=== PATIENT | female | born 2000 | race Caucasian/White ===

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

== ENCOUNTER 2022-01-19 18:22 | Emergency (ER) | payer BC ==
[~2022-01-19] VITALS: Ht 170.2 cm; Wt 116.4 kg
[2022-01-19 18:23] VITALS: BP 144/83
== END 2022-01-19 20:02 | disposition left against medical advice (07) ==
LOC: M ED 18:22
DX: Z53.21 Procedure and treatment not carried out due to patient leaving prior to being seen by health care provider (principal)

== ENCOUNTER 2022-02-11 01:47 | Emergency (ER) | payer BC, OTHER, SELFPAY ==
[~2022-02-11] VITALS: Ht 170.2 cm; Wt 119.8 kg
[2022-02-11 02:21] LABS: BASO % 0.3 % (0.0-1.0); EOS # 0.1 10^3/uL (0.0-0.5); HEMATOCRIT 36.9 % (36.0-47.0); HEMOGLOBIN 11.2 g/dl (12.0-15.5); LYMPH # 2.1 10^3/uL (1.5-5.0); LYMPH % 30.5 % (24.0-44.0); MEAN CORPUSCULAR HEMOGLOBIN 23.4 pg (27.0-33.0); MEAN CORPUSCULAR HGB CONC 30.4 g/dl (32.0-36.5); MEAN CORPUSCULAR VOLUME 77.2 fl (80.0-96.0); MONO # 0.6 10^3/uL (0.0-0.8); NEUTROPHILS # 4.1 10^3/uL (1.5-8.5); NEUTROPHILS % 58.9 % (36.0-66.0); PLATELET COUNT, AUTOMATED 268 10^3/uL (150-450); RED BLOOD COUNT 4.78 10^6/uL (4.00-5.40); WHITE BLOOD COUNT 6.9 10^3/uL (4.0-10.0)
[2022-02-11 02:56] LABS: ALBUMIN 3.4 GM/DL (3.2-5.2); ALT/SGPT 60 U/L (12-78); BILIRUBIN,DIRECT < 0.1 MG/DL (0.0-0.2); BILIRUBIN,TOTAL 0.2 MG/DL (0.2-1.0); BLOOD UREA NITROGEN 15 MG/DL (7-18); CALCIUM LEVEL 8.8 MG/DL (8.5-10.1); CARBON DIOXIDE LEVEL 25 MEQ/L (21-32); CHLORIDE LEVEL 111 MEQ/L (98-107); CREATININE FOR GFR 0.78 MG/DL (0.55-1.30); GLUCOSE, FASTING 105 MG/DL (70-100); LIPASE 142 U/L (73-393); POTASSIUM SERUM 3.7 MEQ/L (3.5-5.1); SODIUM LEVEL 141 MEQ/L (136-145); TOTAL PROTEIN 6.7 GM/DL (6.4-8.2)
[2022-02-11 08:27] VITALS: BP 131/84
== END 2022-02-11 09:29 | disposition left against medical advice (07) ==
LOC: M ED 01:47
DX: Z53.21 Procedure and treatment not carried out due to patient leaving prior to being seen by health care provider (principal)

== ENCOUNTER 2022-05-30 00:23 | Emergency (ER) | payer OTHER ==
[~2022-05-30] VITALS: Ht 170.2 cm; Wt 124.7 kg
[2022-05-30 07:27] LABS: BASO % 0.5 % (0.0-1.0); EOS # 0.1 10^3/uL (0.0-0.5); EOS % 0.8 % (0.0-3.0); HEMATOCRIT 44.2 % (36.0-47.0); HEMOGLOBIN 13.5 g/dl (12.0-15.5); LYMPH # 2.8 10^3/uL (1.5-5.0); LYMPH % 34.1 % (24.0-44.0); MEAN CORPUSCULAR HEMOGLOBIN 24.3 pg (27.0-33.0); MEAN CORPUSCULAR HGB CONC 30.5 g/dl (32.0-36.5); MEAN CORPUSCULAR VOLUME 79.5 fl (80.0-96.0); MONO # 0.8 10^3/uL (0.0-0.8); MONO % 9.5 % (2.0-8.0); NEUTROPHILS # 4.5 10^3/uL (1.5-8.5); NEUTROPHILS % 54.7 % (36.0-66.0); PLATELET COUNT, AUTOMATED 254 10^3/uL (150-450); RED BLOOD COUNT 5.56 10^6/uL (4.00-5.40); WHITE BLOOD COUNT 8.3 10^3/uL (4.0-10.0)
[2022-05-30 07:52] LABS: CHLORIDE LEVEL 107 MMOL/L (98-107); HCG, SERUM QUALITATIVE NEGATIVE (NEGATIVE); SODIUM LEVEL 140 MMOL/L (136-145)
[2022-05-30 07:53] LABS: ALBUMIN 4.3 G/DL (3.2-5.2); CARBON DIOXIDE LEVEL 21 MMOL/L (20-31)
[2022-05-30 07:58] LABS: BLOOD UREA NITROGEN 11 MG/DL (9-23); LIPASE 26 U/L (12-53)
[2022-05-30 07:59] LABS: ALKALINE PHOSPHATASE 67 U/L (46-116); CALCIUM LEVEL 9.1 MG/DL (8.5-10.1); CK-MB VALUE MASS < 1.0 NG/ML (<3.6); GLUCOSE, FASTING 89 MG/DL (60-100)
[2022-05-30 08:00] LABS: ALT/SGPT 78 U/L (7.0-40); AST/SGOT 68 U/L (<34); BILIRUBIN,TOTAL 0.6 MG/DL (0.3-1.2); TOTAL PROTEIN 7.6 G/DL (5.7-8.2)
[2022-05-30 08:01] LABS: BILIRUBIN,DIRECT 0.2 MG/DL (<0.4); CREATININE FOR GFR 0.77 MG/DL (0.55-1.30)
[2022-05-30 08:06] LABS: CPK CREATINE PHOSPHOKINASE 93 U/L (34-145); MB/CK RELATIVE INDEX 1.07 (< OR =4); POTASSIUM SERUM 4.3 MMOL/L (3.5-5.1)
[2022-05-30] MEDS ORDERED: GI COCKTAIL 50ML BTL(HYOSCYAMINE/MAALOX/LIDOCAINE VISCOUS)(1:3:1) PO ONE (09:15)
[2022-05-30] MEDS ORDERED: PANTOPRAZOLE 40MG VIAL IV ONE (09:15)
[2022-05-30] MEDS ORDERED: NS 1,000 ML IV ONE (09:15)
[2022-05-30] MEDS ORDERED: ISOVUE-370 76% 100ML VIAL As Ordered ONE (09:36)
[2022-05-30] MEDS ORDERED: CARA1TAB6 PO (13:17)
[2022-05-30] MEDS ORDERED: OMEP40CA4 PO (13:17)
[2022-05-30 14:20] VITALS: BP 127/75
[2022-05-30 15:35] LABS: MONO SCRN NEGATIVE (NEGATIVE)
== END 2022-05-30 14:23 | disposition home or self-care (01) ==
LOC: M ED 00:23
DX: K29.70 Gastritis, unspecified, without bleeding (principal); K21.9 Gastro-esophageal reflux disease without esophagitis; N83.292 Other ovarian cyst, left side; R74.01 Elevation of levels of liver transaminase levels; I88.0 Nonspecific mesenteric lymphadenitis; R16.1 Splenomegaly, not elsewhere classified; R10.13 Epigastric pain; D64.9 Anemia, unspecified; F12.10 Cannabis abuse, uncomplicated; E66.9 Obesity, unspecified
CPT/HCPCS: 74177; 76705; 80048; 80076; 81000; 81015; 82550; 82553; 83690; 84703; 85025; 86308; 87086; 93005; 96361; 96374; 99284; C9113

== ENCOUNTER → 2022-08-01 | Outpatient (CLI) | payer OTHER ==
[~2022-08-01] MED LIST: CARA1TAB6 PO; OMEP40CA4 PO
[2022-08-01 13:44] LABS: THYROID STIMULATING HORMONE 1.947 uIU/ML (0.48-4.17)
[2022-08-01 13:45] LABS: FOLLICLE STIMULATING HORMONE 4.3 mIU/ML
[2022-08-01 13:46] LABS: LUTEINIZING HORMONE 3.3 mIU/ML; PROLACTIN 5.62 NG/ML
[2022-08-01 13:47] LABS: FREE T4 1.13 NG/DL (0.83-1.43); PROGESTERONE 0.29 NG/ML
== END ==
LOC: M PLALAB 10:08
PROVIDERS: ATTEND Specialist
DX: N92.6 Irregular menstruation, unspecified (principal)

== ENCOUNTER → 2022-09-06 | Outpatient (REF) | payer OTHER, MEDICARE ==
[2022-09-06 15:22] LABS: GC DNA AMPLIFICATION NEGATIVE (NEGATIVE)
== END ==
LOC: M SFHCWAGY 12:58
PROVIDERS: ATTEND Specialist
DX: Z12.4 Encounter for screening for malignant neoplasm of cervix (principal)

== ENCOUNTER → 2024-10-02 | Outpatient (CLI) | payer OTHER ==
[2024-10-02 14:39] LABS: HEMOGLOBIN A1c 4.7 % (4.0-6.0)
[2024-10-02 14:53] LABS: FREE T4 1.06 NG/DL (0.89-1.76); THYROID STIMULATING HORMONE 1.986 uIU/ML (0.55-4.78)
[2024-10-02 15:02] LABS: ALBUMIN 3.7 G/DL (3.2-5.2); ALKALINE PHOSPHATASE 62 U/L (35-104); ALT/SGPT 36 U/L (7.0-40); AST/SGOT 28 U/L (<34); BILIRUBIN,TOTAL 0.5 MG/DL (0.3-1.2); BLOOD UREA NITROGEN 10 MG/DL (9-23); CALCIUM LEVEL 8.9 MG/DL (8.5-10.1); CARBON DIOXIDE LEVEL 27 MMOL/L (20-31); CHLORIDE LEVEL 110 MMOL/L (98-107); CREATININE FOR GFR 0.77 MG/DL (0.55-1.30); GLOMERULAR FILTRATION RATE > 60.0 (>60); GLUCOSE, FASTING 93 MG/DL (60-100); POTASSIUM SERUM 4.5 MMOL/L (3.5-5.1); SODIUM LEVEL 143 MMOL/L (136-145); TOTAL PROTEIN 6.6 G/DL (5.7-8.2)
== END ==
LOC: M PLALAB 11:01
PROVIDERS: ATTEND Specialist
DX: N92.6 Irregular menstruation, unspecified (principal)